=== PATIENT | female | born 1990 | race African-American/Black ===

== ENCOUNTER 2017-08-13 16:34 | Emergency (ER) | payer MEDICAID ==
[~2017-08-13] VITALS: Ht 170.2 cm; Wt 78.5 kg
--- NOTE | 2017-08-13 17:31 | NUR ---
PT WAS EVALUATED BY DR MOBLEY. PT WAS D/C TO HOME. D/C INSTRUCTIONS GIVEN TO THE PT BY DR MOBLEY.
[2017-08-13 17:33] VITALS: BP 139/75
== END 2017-08-13 17:34 | disposition home or self-care (01) ==
LOC: ER 16:35
DX: R05 Cough (principal); F17.200 Nicotine dependence, unspecified, uncomplicated; Z88.0 Allergy status to penicillin
CPT/HCPCS: 71045; A4663